=== PATIENT | male | born 1985 | race Caucasian/White ===

== ENCOUNTER 2022-05-27 19:15 | Outpatient (CLI) | payer OTHER | END 2022-05-28 03:50 | disposition home or self-care (01) | LOC: SLEEP 19:15 | DX: G47.33 Obstructive sleep apnea (adult) (pediatric) (principal); R06.83 Snoring; G47.10 Hypersomnia, unspecified; G47.36 Sleep related hypoventilation in conditions classified elsewhere | CPT/HCPCS: 95811 ==

== ENCOUNTER 2022-06-05 14:43 | Emergency (ER) | payer OTHER ==
[~2022-06-05] VITALS: Ht 182.9 cm; Wt 122.5 kg
[2022-06-05 14:55] VITALS: BP 129/86
--- NOTE | 2022-06-05 15:01 | ED Lower Extremity ---
General Stated Complaint: POST OP FOOT - PAIN Source: patient History of Present Illness Date Seen by Provider: Jun 05, 2022 Time Seen by Provider: 15:01 Initial Comments 36 y/o male presents today with c/o redness, swelling, and pain to right great toe. Pt states he had the toenails removed from this toe and the right 5th toe on 06/01/22 due to fungal infection of the nail. Pt states he has had no pain, redness, or complications since the toenail removal until today. Pain has progressively worsened, rates it 5/10. He declines pain medications and has not taken anything at home, but is concerned the toe is infected now. Onset: this morning Pain/Injury Location: right 1st toe Method of Injury: other (denies injury, had toenail removal on 06/01/22) Allergies and Home Medications Patient Home Medication List Home Medication List Reviewed: Yes Cephalexin (Cephalexin) 500 Mg Tablet, 500 MG PO TID Prescribed by: Jessie Donovan on 06/05/22 1507 Last Action: New Order Review of Systems Constitutional: no symptoms reported Musculoskeletal: No joint pain, No joint swelling, No muscle pain Skin: change in color, other (warmth, erythema) Physical Exam Vital Signs Vital Signs - First Documented 06/05/22 14:55 Temp 36.7 Pulse 80 Resp 16 B/P (MAP) 129/86 (100) O2 Delivery Room Air Capillary Refill : Height, Weight, BMI Height: '" Weight: lbs. oz. kg; BMI Method: General Appearance: WD/WN, no apparent distress Feet: right foot infection (right great toe), right foot pain (right great toe), right foot soft tissue tenderness (right great toe) Neurologic/Tendon: normal sensation, normal motor functions, normal tendon functions, responds to pain Neurologic/Psychiatric: no motor/sensory deficits Skin: other (erythema and warmth of distal right great toe) Progress/Results/Core Measures Results/Orders Vital Signs/I&O 06/05/22 14:55 Temp 36.7 Pulse 80 Resp 16 B/P (MAP) 129/86 (100) O2 Delivery Room Air Departure Impression Primary Impression: Cellulitis of toe of right foot Disposition: 01 HOME, SELF-CARE Condition: Stable Departure-Patient Inst. Decision time for Depature: 15:12 Referrals: NO,LOCAL PHYSICIAN (PCP) Primary Care Physician KALIN LOZANO APRN (Family) Primary Care Physician Patient Instructions: Cellulitis (Skin Infection), Adult (DC) Add. Discharge Instructions: Tylenol and motrin prn. Take antibiotic as prescribed. F/u with new/worsening concerns Scripts Cephalexin (Cephalexin) 500 Mg Tablet 500 MG PO TID for 10 Days, #30 TAB 0 Refills Prov: JESSIE DONOVAN APRN 06/05/22 JESSIE DONOVAN APRN Jun 05, 2022 15:01
[2022-06-05] MEDS ORDERED: CEPH500T PO (15:07)
== END 2022-06-05 15:12 | disposition home or self-care (01) ==
LOC: EDUNIT# 14:43 → ER 14:44
DX: L03.031 Cellulitis of right toe (principal); Z88.1 Allergy status to other antibiotic agents; Z28.310 Unvaccinated for COVID-19
CPT/HCPCS: 99281

== ENCOUNTER 2022-12-08 20:57 | Outpatient (CLI) | payer OTHER ==
[~2022-12-08 20:57] MED LIST: CEPH500T PO
== END 2022-12-09 05:47 | disposition home or self-care (01) ==
LOC: SLEEP 20:57
PROVIDERS: ATTEND Otolaryngology Otolaryngology/Facial Plastic Surgery
DX: G47.33 Obstructive sleep apnea (adult) (pediatric) (principal)
CPT/HCPCS: 95811